=== PATIENT | male | born 1980 | race Caucasian/White ===

== ENCOUNTER 2018-08-28 23:25 | Emergency (ER) | payer MEDICAID ==
[~2018-08-28] VITALS: Ht 165.1 cm; Wt 54.5 kg
[~2018-08-28 23:25] MED LIST: ARIP5TAB4 PO; MUPI15CR TP
[2018-08-29 00:09] VITALS: BP 122/76
--- NOTE | 2018-08-29 00:26 | NUR ---
GOT HIM DRY/CLEAN CLOTHES AND JACKET AND 2 PONCHOS
== END 2018-08-29 00:59 | disposition home or self-care (01) ==
LOC: ER 23:26
DX: R10.9 Unspecified abdominal pain (principal); R11.2 Nausea with vomiting, unspecified; R04.0 Epistaxis; J45.909 Unspecified asthma, uncomplicated; F12.90 Cannabis use, unspecified, uncomplicated; F15.90 Other stimulant use, unspecified, uncomplicated; Z56.0 Unemployment, unspecified; Z59.0 Homelessness; Z91.011 Allergy to milk products; Z79.899 Other long term (current) drug therapy
CPT/HCPCS: 99281

== ENCOUNTER 2018-12-06 20:31 | Emergency (ER) | payer MEDICAID ==
[~2018-12-06] VITALS: Ht 162.6 cm; Wt 56.5 kg
--- NOTE | 2018-12-06 20:41 | NUR ---
BIB EMS AND TRIAGE APPROPRIATE. REPORT FROM EMS: PT COMMING FROM [facility]. HERE FOR METH WDRAWL. 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 STAFF THERE REPORT PT ACTING BIZZARE AND PARANOID AND THEY WERE FEARFUL HE WOULD GET AGGRESSIVE. 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 DENIES ANY OTHER DRUG OR ETOH USE. PT WAS AGREEABLE TO TRANSPORT AND HAS BEEN COOPERATIVE WITH EMS. NO OTHER MEDICAL COMPLAINT. NO NAUSEA OR VOMITING.
[2018-12-06 20:42] VITALS: BP 110/98
== END 2018-12-06 21:20 | disposition home or self-care (01) ==
LOC: ER 20:31
DX: F15.93 Other stimulant use, unspecified with withdrawal (principal); J45.909 Unspecified asthma, uncomplicated; F32.9 Major depressive disorder, single episode, unspecified; F20.9 Schizophrenia, unspecified; F12.90 Cannabis use, unspecified, uncomplicated; Z56.0 Unemployment, unspecified; Z59.0 Homelessness; Z91.011 Allergy to milk products; Z79.899 Other long term (current) drug therapy; Z79.2 Long term (current) use of antibiotics
CPT/HCPCS: 99284

== ENCOUNTER 2019-05-30 14:18 | Emergency (ER) | payer MEDICAID ==
[~2019-05-30] VITALS: Ht 165.1 cm; Wt 63.9 kg
[~2019-05-30 14:18] MED LIST changes: +ARIP5TAB14 PO; -ARIP5TAB4 PO
[2019-05-30 17:05] LABS: BASOPHILS % (AUTO) 0.6 % (0-1); EOSINOPHILS # (AUTO) 0.1 X10'3 (0-0.9); HEMATOCRIT 44.2 % (42.0-52.0); HEMOGLOBIN 14.6 g/dl (14.0-17.9); LYMPHOCYTES # (AUTO) 2.3 X10'3 (1.1-4.8); LYMPHOCYTES % (AUTO) 31.3 % (21-51); MEAN CORPUSCULAR HEMOGLOBIN 28.1 PG (27.0-31.0); MEAN CORPUSCULAR HGB CONC 33.1 g/dL (33.0-36.5); MEAN CORPUSCULAR VOLUME 84.9 FL (78-98); MEAN PLATELET VOLUME 7.2 FL (7.4-10.4); MONOCYTES # (AUTO) 0.6 X10'3 (0-0.9); MONOCYTES % (AUTO) 7.9 % (2-12); NEUTROPHILS # (AUTO) 4.4 X10'3 (1.8-7.7); NEUTROPHILS % (AUTO) 59.2 % (42-75); PLATELET COUNT 233 X10'3 (140-440); RED BLOOD COUNT 5.21 X10'6 (4.70-6.10); RED CELL DISTRIBUTION WIDTH 15.6 % (11.5-14.5); WHITE BLOOD COUNT 7.4 X10'3 (4.5-11.0)
[2019-05-30 17:27] LABS: ALANINE AMINOTRANSFERASE 53 U/L (12-78); ALBUMIN 3.5 G/DL (3.4-5.0); ALBUMIN/GLOBULIN RATIO 0.9 (1.1-1.5); ALKALINE PHOSPHATASE 104 IU/L (46-116); ANION GAP 8 (8-16); ASPARTATE AMINO TRANSFERASE 32 U/L (10-37); BILIRUBIN,TOTAL 0.3 MG/DL (0.1-1.0); BLOOD UREA NITROGEN 5 MG/DL (7-18); BUN/CREATININE RATIO 6.3 (5.4-32.0); CALCIUM 9.1 MG/DL (8.5-10.1); CHLORIDE 105 MMOL/L (99-107); CREATININE 0.79 MG/DL (0.60-1.10); ETHANOL < 0.010 GM/DL (0.0-0.010); GLUCOSE 94 MG/DL (70-104); POTASSIUM 3.4 MMOL/L (3.5-5.1); SODIUM 140 MMOL/L (135-145); TOTAL CARBON DIOXIDE 27.3 MMOL/L (24-32); TOTAL PROTEIN 7.6 G/DL (6.4-8.2); eGFR > 90 ML/MIN
[2019-05-30 17:30] LABS: ACETAMINOPHEN < 2.0 UG/ML (10-30); VALPROATE < 3.0 UG/ML (50-100)
[2019-05-30 17:35] LABS: CLARITY,URINE CLEAR (Clear); COLOR,URINE YELLOW (Yellow); GLUCOSE, URINE NEGATIVE (Neg); KETONES,URINE NEGATIVE (Neg); LEUKOCYTE ESTERASE ,URINE TRACE (Neg); NITRITES, URINE NEGATIVE (Neg); OCCULT BLOOD,URINE NEGATIVE (Neg); PH,URINE 6.5 (4.8-8.0); PROTEIN,URINE NEGATIVE (Neg); UROBILINOGEN,URINE 0.2 E.U/dL (0.2-1.0)
[2019-05-30 17:39] LABS: UA COLLECTION TYPE CLN CATCH MIDSTREAM
[2019-05-30] MEDS ORDERED: potassium Cl 20 mEq SR tablet PO ONE (17:40)
[2019-05-30 17:42] LABS: BACTERIA,URINE NONE SEEN /HPF (Neg); RBC,URINE NONE SEEN /HPF (0-2); SQUAMOUS EPITHELIAL CELL,UR NONE SEEN /LPF (FEW); WBC,URINE 0-4 /HPF (0-4)
[2019-05-30 17:44] LABS: URINE AMPHETAMINE SCREEN POSITIVE (Neg); URINE BARBITUATE SCREEN NEGATIVE (Neg); URINE BENZODIAZEPINES SCREEN NEGATIVE (Neg); URINE CANNABINOID SCREEN NEGATIVE (Neg); URINE COCAINE SCREEN NEGATIVE (Neg); URINE METHADONE SCREEN NEGATIVE (Neg); URINE OPIATE SCREEN NEGATIVE (Neg); URINE PHENCYCLIDINE SCREEN NEGATIVE (Neg)
--- NOTE | 2019-05-30 17:57 | NUR ---
PATIENT CALM AND IN BED UNDER THE COVERS, PROVIDED URINE SAMPLE. MOTHER, VERITO CAME AND VISITED PATIENT AND SAID THAT PATIENT AT ONE TIME WAS RECEIVING MENTAL HEALTH SERVICES IN [facility]. SHE GAVE TWO PHONE NUMBERS: ONE WAS FOR MENTAL HEALTH [phone] AND BOBBI WHO SHE CLAIMS WAS HIS "WORKER" [phone]. PATIENT WAS SUPPOSED TO BE RECEIVING HELP GETTING INTO A DRUG AND ALCOHOL REHAB ACCORDING TO THE MOTHER AND SHE STATED " iM NOT SURE HOW HE ENDED UP HERE"
--- NOTE | 2019-05-30 18:20 | NUR ---
FAXED PACKET [facility]
--- NOTE | 2019-05-30 18:45 | NUR ---
PT FINISHED DINNER/ RESTING IN BED WITH HOB ELEVATED 30 DEGREES WITH BLANKET OVER HIS HEAD . PT STATES HE WOULD LIKE TO GO HOME , STATES HE WILL NOT HARM HIMSELF. UPDATED PLOC WITH PATIENT
--- NOTE | 2019-05-30 19:25 | NUR ---
PT UP OUT OF BED LOOOKING AT BACK WALL BEDHIND THE NURSES STATION . 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 REASSURED PT THAT THE WALL IS THERE AND THER IS ONLY ROOMS THAT STORE SUPPLIES. REDIRECTED PT BACK TO BED . PT AGREEED TO REURN TO BED .
--- NOTE | 2019-05-30 19:28 | NUR ---
[facility] AT BEDSIDE TALKING WITH PATIENT
--- NOTE | 2019-05-30 19:48 | NUR ---
PHONED PT MOTHER , VERITO AT [phone] , TO COME AND MEASUREMENT COORDINATOR PT . PT HAS BEEN DISCHARGED AND HIS MOTHER LIVES IN [facility] AND WILL BE BRINGING PATIENT CLOTHING AND TAKING HIM HOME WITH HER
[2019-05-30 21:58] VITALS: BP 120/80
== END 2019-05-30 20:51 | disposition home or self-care (01) ==
LOC: ER 14:18
DX: F32.9 Major depressive disorder, single episode, unspecified (principal); F41.9 Anxiety disorder, unspecified; J45.909 Unspecified asthma, uncomplicated; F20.9 Schizophrenia, unspecified; F15.90 Other stimulant use, unspecified, uncomplicated; Z59.0 Homelessness; Z56.0 Unemployment, unspecified; Z91.011 Allergy to milk products; Z79.899 Other long term (current) drug therapy; Z86.69 Personal history of other diseases of the nervous system and sense organs
CPT/HCPCS: 36415; 80053; 80164; 80178; 80305; 80320; 80329; 81001; 84443; 85025; 99283